=== PATIENT | female | born 1970 | race African-American/Black ===

== ENCOUNTER 2017-06-15 22:39 | Emergency (ER) | payer BC ==
--- NOTE | 2017-06-16 02:57 | ER ---
Nurse's Notes [facility] Name: Jamie Olivares Age: 46 yrs Sex: Female : 1970 Arrival Date: 06/15/2017 Time: 22:39 Bed 25 Private MD: Diagnosis: Paresthesia of skin Presentation: 06/15 22:49 Presenting complaint: Patient states: reports that she woke up at about 9:10 pm and her tl3 left arm was aching and feeling heavy, she was lying on it when she woke up. She does not feel like it was a regular "asleep" feeling. Transition of care: patient was not received from another setting of care. Onset of symptoms was June 15, 2017. Initial Sepsis Screen: Does the patient meet any 2 criteria? No. Patient's initial sepsis screen is negative. Does the patient have a suspected source of infection? No. Patient's initial sepsis screen is negative. Care prior to arrival: None. 22:49 Method Of Arrival: Ambulatory tl3 22:49 Acuity: MALVIN 3 bb Triage Assessment: 22:52 General: Appears in no apparent distress. comfortable, well groomed, well developed, tl3 well nourished, Behavior is calm, cooperative, appropriate for age. Pain: Complains of pain in left arm Pain currently is 4 out of 10 on a pain scale. EENT: No signs and/or symptoms were reported regarding the EENT system. Neuro: Level of Consciousness is awake, alert, obeys commands, Oriented to person, place, time, situation, Appropriate for age. Cardiovascular: Heart tones S1 S2 present Capillary refill < 3 seconds in bilateral fingers. Respiratory: Airway is patent Trachea midline Respiratory effort is even, unlabored, Respiratory pattern is regular, symmetrical, Breath sounds are clear bilaterally. GI: No signs and/or symptoms were reported involving the gastrointestinal system. : No signs and/or symptoms were reported regarding the genitourinary system. Derm: No signs and/or symptoms reported regarding the dermatologic system. Musculoskeletal: No signs and/or symptoms reported regarding the musculoskeletal system. 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 - Social history:: Smoking status: Patient/guardian denies using tobacco, never smoked. Screenin:56 Abuse screen: Denies threats or abuse. Nutritional screening: No deficits noted. tl3 Tuberculosis screening: No symptoms or risk factors identified. Fall Risk None identified. Assessment: 22:56 General: Appears in no apparent distress. comfortable, slender, well groomed, well tl3 developed, well nourished, Behavior is calm, cooperative, appropriate for age. Pain: Complains of pain in left arm Pain currently is 4 out of 10 on a pain scale. Neuro: Level of Consciousness is awake, alert, obeys commands, Oriented to person, place, time, situation, Appropriate for age. Cardiovascular: Heart tones S1 S2 present Capillary refill < 3 seconds in bilateral fingers. Respiratory: Airway is patent Trachea midline Respiratory effort is even, unlabored, Respiratory pattern is regular, symmetrical, Breath sounds are clear bilaterally. GI: No signs and/or symptoms were reported involving the gastrointestinal system. : No signs and/or symptoms were reported regarding the genitourinary system. EENT: No signs and/or symptoms were reported regarding the EENT system. Derm: No signs and/or symptoms reported regarding the dermatologic system. Musculoskeletal: No signs and/or symptoms reported regarding the musculoskeletal system. 23:29 Reassessment: Patient appears in no apparent distress at this time. No changes from tl3 previously documented assessment. Patient and/or family updated on plan of care and expected duration. Pain level reassessed. Patient is alert, oriented x 3, equal unlabored respirations, skin warm/dry/pink. pain is now at 2/10. 06/16 00:06 Reassessment: Patient appears in no apparent distress at this time. No changes from tl3 previously documented assessment. Patient and/or family updated on plan of care and expected duration. Pain level reassessed. Patient is alert, oriented x 3, equal unlabored respirations, skin warm/dry/pink. waiting for ultra sound. 00:39 Reassessment: Patient appears in no apparent distress at this time. No changes from tl3 previously documented assessment. Patient and/or family updated on plan of care and expected duration. Pain level reassessed. Patient is alert, oriented x 3, equal unlabored respirations, skin warm/dry/pink. pt sleeping. 01:45 Reassessment: Patient appears in no apparent distress at this time. Patient and/or lp1 family updated on plan of care and expected duration. Pain level reassessed. Patient resting, eyes closed, respirations unlabored; waiting for Ultrasound to arrive. 02:05 Reassessment: Ultrasound at bedside. lp1 03:00 Reassessment: Patient appears in no apparent distress at this time. Patient is alert, lp1 oriented x 3, equal unlabored respirations, skin warm/dry/pink. Vital Signs: 06/15 22:52 BP 131 / 90; Pulse 98; Resp 21; Temp 98.6; Pulse Ox 100% on R/A; tl3 23:29 BP 139 / 83; Pulse 68; Resp 18; Pulse Ox 100% on R/A; tl3 06/16 00:06 BP 130 / 72; Pulse 59; Resp 18; Pulse Ox 100% on R/A; tl3 00:39 BP 133 / 81; Pulse 56; Resp 16; Pulse Ox 98% on R/A; tl3 01:15 BP 148 / 97; Pulse 76; Resp 18; Pulse Ox 100% on R/A; lp1 03:00 BP 137 / 84; Pulse 68; Resp 18; Pulse Ox 100% on R/A; Pain 0/10; lp1 ED Course: 06/15 22:39 Patient arrived in ED. ds1 22:48 Rukhsana Alcocer RN is Primary Nurse. tl3 22:51 Triage completed. tl3 22:52 [facility]C [facility]. snw 22:52 Mat Ryan MD is Attending Physician. snw 22:52 Arm band placed on right wrist. tl3 22:56 No apparent distress. Awaiting ED provider evaluation. tl3 22:56 Patient has correct armband on for positive identification. Bed in low position. Call tl3 light in reach. Side rails up X 1. Adult w/ patient. Pulse ox on. NIBP on. 22:56 No provider procedures requiring assistance completed. Patient did not have IV access tl3 during this emergency room visit. 06/16 01:00 Report received from ISAAC Milian. lp1 02:11 Ultrasound completed. Patient tolerated well. sg3 02:13 US Extremity Venous Uni Ltd In Process Unspecified. EDMS Administered Medications: No medications were administered Outcome: :56 Discharge ordered by . snw 03:18 Discharged to home ambulatory. lp1 03:18 Condition: good 03:18 Discharge instructions given to patient, Instructed on discharge instructions, follow up and referral plans. Demonstrated understanding of instructions, follow-up care. 03:18 Patient left the ED. lp1 Signatures: Dispatcher [employer] EDMS Courtney Torres, STAMP CLASSIFIER-C STAMP CLASSIFIER-Csnw Yudith Nice ds1 Aylin Martin RN RN bb Yadi Yo RN RN lp1 Codie Mcfarlane 3 Rukhsana Alcocer RN RN tl3 Corrections: (The following items were deleted from the chart) 02:51 04 22:49 Acuity: MALVIN 5 tl3 bb
--- NOTE | 2017-06-16 02:57 | EDPHYS ---
Physician Documentation [facility] Name: Jamie Olivares Age: 46 yrs Sex: Female : 1970 Arrival Date: 06/15/2017 Time: 22:39 Bed 25 Private MD: ED Physician Mat Ryan HPI: 06/16 00:20 This 46 yrs old Black Female presents to ER via Ambulatory with complaints of Arm Issue.snw 00:20 The patient or guardian complains of pain, tenderness, paresthesias. 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 - Social history:: Smoking status: Patient/guardian denies using tobacco, never smoked. ROS: 06/16 00:19 Constitutional: Negative for fever, chills, and weight loss, Eyes: Negative for injury, snw pain, redness, and discharge, ENT: Negative for injury, pain, and discharge, Neck: Negative for injury, pain, and swelling, Cardiovascular: Negative for chest pain, palpitations, and edema, Respiratory: Negative for shortness of breath, cough, wheezing, and pleuritic chest pain, Abdomen/GI: Negative for abdominal pain, nausea, vomiting, diarrhea, and constipation, Back: Negative for injury and pain, : Negative for injury, bleeding, discharge, and swelling, Skin: Negative for injury, rash, and discoloration, Neuro: Negative for headache, weakness, numbness, tingling, and seizure. MS/extremity: Positive for paresthesias, tenderness, tingling, of the left arm. Exam: 00:18 Constitutional: This is a well developed, well nourished patient who is awake, alert, snw and in no acute distress. Head/Face: Normocephalic, atraumatic. Eyes: Pupils equal round and reactive to light, extra-ocular motions intact. Lids and lashes normal. Conjunctiva and sclera are non-icteric and not injected. Cornea within normal limits. Periorbital areas with no swelling, redness, or edema. ENT: Nares patent. No nasal discharge, no septal abnormalities noted. Tympanic membranes are normal and external auditory canals are clear. Oropharynx with no redness, swelling, or masses, exudates, or evidence of obstruction, uvula midline. Mucous membranes moist. Neck: Trachea midline, no thyromegaly or masses palpated, and no cervical lymphadenopathy. Supple, full range of motion without nuchal rigidity, or vertebral point tenderness. No Meningismus. Chest/axilla: Normal chest wall appearance and motion. Nontender with no deformity. No lesions are appreciated. Cardiovascular: Regular rate and rhythm with a normal S1 and S2. No gallops, murmurs, or rubs. Normal PMI, no JVD. No pulse deficits. Respiratory: Lungs have equal breath sounds bilaterally, clear to auscultation and percussion. No rales, rhonchi or wheezes noted. No increased work of breathing, no retractions or nasal flaring. Abdomen/GI: Soft, non-tender, with normal bowel sounds. No distension or tympany. No guarding or rebound. No evidence of tenderness throughout. Back: No spinal tenderness. No costovertebral tenderness. Full range of motion. Skin: Warm, dry with normal turgor. Normal color with no rashes, no lesions, and no evidence of cellulitis. Neuro: Awake and alert, GCS 15, oriented to person, place, time, and situation. Cranial nerves II-XII grossly intact. Motor strength 5/5 in all extremities. Sensory grossly intact. Cerebellar exam normal. Normal gait. 00:18 Musculoskeletal/extremity: Extremities: all appear grossly normal, with no appreciated pain with palpation, ROM: no acute changes, Circulation is intact in all extremities. decreased sensation, but almost back to normal on exam Vital Signs: 06/15 22:52 BP 131 / 90; Pulse 98; Resp 21; Temp 98.6; Pulse Ox 100% on R/A; tl3 23:29 BP 139 / 83; Pulse 68; Resp 18; Pulse Ox 100% on R/A; tl3 06/16 00:06 BP 130 / 72; Pulse 59; Resp 18; Pulse Ox 100% on R/A; tl3 00:39 BP 133 / 81; Pulse 56; Resp 16; Pulse Ox 98% on R/A; tl3 01:15 BP 148 / 97; Pulse 76; Resp 18; Pulse Ox 100% on R/A; lp1 03:00 BP 137 / 84; Pulse 68; Resp 18; Pulse Ox 100% on R/A; Pain 0/10; lp1 MDM: 06/15 22:52 Patient medically screened. snw 06/16 01:45 Data reviewed: vital signs, nurses notes. Data interpreted: Pulse oximetry: on room air snw is 98 %. Interpretation: normal. Counseling: I had a detailed discussion with the patient and/or guardian regarding: awaiting ultrasound. 02:05 ED course: Ultrasound in progress. snw 06/15 23:16 Order name: US Extremity Venous Uni Ltd snw 06/15 23:16 Order name: EKG; Complete Time: 23:16 snw 06/15 23:16 Order name: EKG - Nurse/Tech; Complete Time: 23:40 snw Administered Medications: No medications were administered Disposition: 04:19 Co-signature as Attending Physician, Mat Ryan MD. rn Disposition: 06/16/17 02:56 Discharged to Home. Impression: Paresthesia of skin. - Condition is Stable. - Discharge Instructions: Cooking with Less Salt, Hypertension, Paresthesia, How to Take Your Blood Pressure, [id number], Managing Your High Blood Pressure. - Medication Reconciliation Form, Thank You Letter, Antibiotic Education, Prescription Opioid Use form. - Follow up: Private Physician; When: 1 week; Reason: Recheck today's complaints, Continuance of care, Re-evaluation by your physician. Follow up: Emergency Department; When: As needed; Reason: Worsening of condition. Signatures: Dispatcher [employer] EDMS Courtney Torres, HEEL BLACKER-C HEEL BLACKER-Csnw Mat Ryan MD MD rn Pena, Laura RN RN lp1 Rukhsana Alcocer RN RN tl3
--- NOTE | 2017-06-16 09:01 | RAD REPORT ---
EXAM DESCRIPTION: VAS - Extremity Venous Uni Ltd - 06/16/2017 2:13 am CLINICAL HISTORY: Left arm pain and swelling COMPARISON: None. TECHNIQUE: Real-time sonographic evaluation of the left upper extremity deep venous systems was perf ormed. FINDINGS: Normal compressibility, flow augmentation, phasic flow and spontaneous flow are identified in the left upper extremity deep venous system. No intraluminal filling defects seen. Internal jugul ar and subclavian veins are normal as well. IMPRESSION: No DVT in the left upper extremity.
--- NOTE | 2017-06-17 07:19 | EKG ---
Test Date: 2017-06-15 Test Time: 23:19:02 Senior Controller: TL MEASUREMENT RESULTS: Intervals: Rate: 63 MA: 124 QRSD: 94 QT: 422 QTc: 431 [place]: P: 51 MA: 124 QRS: 34 T: 33 INTERPRETIVE STATEMENTS: Normal sinus rhythm Normal ECG Compared to ECG 09/23/2016 13:32:26 No significant changes Electronically Signed On 06-17-17 07:18:03 CDT by Lowell Carlson
== END 2017-06-16 03:18 | disposition home or self-care (01) ==
LOC: ER 22:39
DX: R20.2 Paresthesia of skin (principal); Z88.5 Allergy status to narcotic agent
CPT/HCPCS: 93005; 93971; 99283